=== PATIENT | male | born 1980 | race Two or more races ===

== ENCOUNTER 2019-02-11 09:02 | Emergency (ER) | payer MEDICAID ==
[~2019-02-11] VITALS: Ht 175.3 cm; Wt 74.8 kg
--- NOTE | 2019-02-11 09:03 | NUR ---
[id number], AND JAMSHID, HOMELESS ACTING BIZZARE, DENIES TAKING DRUGS. AGITATED. PATIENT CONNECTED TO MONITOR. VITAL SIGNS ARE STABLE. BREATHING UNLABORED AND EVEN. WILL CONTINUE TO MONITOR FOR PATIENT'S SAFETY.
--- NOTE | 2019-02-11 09:08 | NUR ---
URINE COLLECTED AND SENT TO LAB.
[2019-02-11] MEDS ORDERED: diphenhydrAMINE HCL 50 MG/ML VIAL ONE (09:23)
[2019-02-11] MEDS ORDERED: LORAZEPAM INJ 2 MG/ML VIAL ONE (09:24)
[2019-02-11] MEDS ORDERED: HALOPERIDOL LACTATE INJ 5 MG/ML VIAL ONE (09:24)
[2019-02-11] MEDS ORDERED: diphenhydrAMINE HCL 50 MG/ML VIAL IM ONE (09:30)
[2019-02-11] MEDS ORDERED: HALOPERIDOL LACTATE INJ 5 MG/ML VIAL IM ONE (09:30)
[2019-02-11] MEDS ORDERED: LORAZEPAM INJ 2 MG/ML VIAL IM ONE (09:30)
[2019-02-11 09:42] LABS: BILIRUBIN,URINE Negative (NEGATIVE); BLOOD, URINE Trace-intact Ery/uL (NEGATIVE); COLOR,URINE Yellow (YELLOW); KETONES,URINE Negative (NEGATIVE); LEUKOCYTE ESTERASE ,URINE Negative (NEGATIVE); NITRITE, URINE Negative (NEGATIVE); PROTEIN,URINE Negative (NEGATIVE); UGLUCOSE Negative (NEGATIVE); UROBILINOGEN,URINE 0.2 EU/dL (0.2)
[2019-02-11 09:47] LABS: APPEARANCE,URINE SLIGHTLY CLOUDY (CLEAR)
[2019-02-11 09:52] LABS: BASOPHILS # (AUTO) 0.1 /CMM (0.0-0.2); BASOPHILS % (AUTO) 0.8 % (0.0-2.0); EOSINOPHILS % (AUTO) 0.2 % (0.0-6.0); HEMATOCRIT 33 % (39-51); HEMOGLOBIN 10.3 g/dL (13.5-17.5); LYMPHOCYTES # (AUTO) 2.4 /CMM (0.8-4.8); LYMPHOCYTES % (AUTO) 14.1 % (20.0-44.0); MEAN CORPUSCULAR HGB CONC 32 g/dl (31.0-36.0); MEAN CORPUSCULAR VOLUME 73 fL (80-96); MONOCYTES # (AUTO) 1.9 /CMM (0.1-1.30); NEUTROPHILS # (AUTO) 12.5 /CMM (1.8-8.9); NEUTROPHILS % (AUTO) 73.9 % (43.0-81.0); PLATELET COUNT (AUTO) 496 /CMM (150-450); RED BLOOD CELL COUNT(AUTO) 4.45 MIL/uL (4.5-6.0); WHITE BLOOD COUNT (AUTO) 16.9 K/uL (4.3-11.0)
[2019-02-11 10:01] LABS: BACTERIA,URINE None seen /HPF (None Seen); SQUAMOUS EPITHELIAL CELL,UR Few /HPF (None Seen)
[2019-02-11 10:02] LABS: URINE AMORPHOUS PHOSPHATES Few /HPF (None Seen)
[2019-02-11 10:09] LABS: CALCIUM, SERUM 9.3 mg/dL (8.5-10.1); CARBON DIOXIDE 29 mmol/L (21-32); CHLORIDE 103 mmol/L (98-107); CREATININE 0.8 mg/dL (0.6-1.3); GLUCOSE 91 mg/dL (74-106); POTASSIUM 4.3 mmol/L (3.5-5.1); SODIUM SERUM 138 mmol/L (136-145); UREA NITROGEN, BLOOD 16 mg/dL (7-18)
[2019-02-11 10:17] LABS: ACETAMINOPHEN 0 ug/ml (10-30); ALANINE AMINOTRANSFERASE 25 U/L (12-78); ALBUMIN 2.8 g/dL (3.4-5.0); ALCOHOL, BLOOD < 3 mg/dL (0-0); ALKALINE PHOSPHATASE 135 U/L (46-116); ASPARTATE AMINOTRANSFERASE 28 U/L (15-37); BILIRUBIN,DIRECT 0.1 mg/dL (0.0-0.2); BILIRUBIN,TOTAL 0.3 mg/dL (0.2-1.0); SALICYLATE 1.5 mg/dL (2.8-20.0); TOTAL PROTEIN, SERUM 8.9 g/dL (6.4-8.2)
[2019-02-11 12:11] LABS: LYMPHOCYTES % (MANUAL) 11 % (16-48); MONOCYTES % (MANUAL) 5 % (0-11.0); NEUTROPHILS % (MANUAL) 84 (42-76)
--- NOTE | 2019-02-12 05:52 | NUR ---
PT UNSTEADY. UNABLE TO DISCHARGE AT THIS TIME. AWARE
--- NOTE | 2019-02-12 07:28 | NUR ---
PT ASSESSED ON BED ASLEEP EASILY AROUSABLE, V/S STABLE, KEPT RESTED AND COMFORTABLE, WILL CONTINUE TO MONITOR.
--- NOTE | 2019-02-12 08:35 | NUR ---
FOOD TRAY PROVIDED
--- NOTE | 2019-02-12 08:40 | NUR ---
Social service consult requested by GENESIS More for homelessness and chronic drug use. Pt. is a 39 year old male who was brought in by police and paramedics on 02/11/19. . Patient was found in the street acting bizarre with suspected drug use.JIMMY met with the pt. bedside. Pt. is alert and oriented x 3. SW and ED is very familiar with the pt. from several ED visits per month. Pt. is a chronic methamphetamine user and last used yesterday. Pt. is homeless. Pt. appears dirty and disheveled. Pt. has a foul smell. Pt. is able to answer questions asked of him. JIMMY offered halfway placement to the pt., however pt. declined. SW offered homeless resources and pt. declined. Pt. is still has unsteady gait and is not able to be discharged as of yet. JIMMY informed GENESIS More and [place] regarding pt' s gait.
--- NOTE | 2019-02-12 12:52 | NUR ---
PT ASLEEP ON BED, EASILY AROUSABLE, V/S STABLE, KEPT RESTED AND COMFORTABLE, WILL CONTINUE TO MONITOR.
--- NOTE | 2019-02-12 14:37 | NUR ---
AT BEDSIDE FOR EVAL.
--- NOTE | 2019-02-12 14:50 | NUR ---
PT WHEELED TO CT SCAN VIA [facility].
[2019-02-12 15:38] VITALS: BP 128/76
--- NOTE | 2019-02-12 15:38 | NUR ---
Patient discharged to home in stable condition. Written and verbal after care instructions given. Patient verbalizes understanding of instruction.
== END 2019-02-12 15:39 | disposition home or self-care (01) ==
LOC: ER 09:04
DX: R45.1 Restlessness and agitation (principal); R51 Headache; F12.10 Cannabis abuse, uncomplicated; F11.10 Opioid abuse, uncomplicated; F15.10 Other stimulant abuse, uncomplicated; Z59.0 Homelessness
CPT/HCPCS: 36415; 70450; 80048; 80076; 80305; 80307; 80329; 81001; 85025; 96372 ×3; 99284; A4216; G0480; J1200; J1630; J2060; 81000-TC

== ENCOUNTER 2019-03-15 09:11 | Emergency (ER) | payer MEDICAID ==
[~2019-03-15] VITALS: Ht 175.3 cm; Wt 62.6 kg
--- NOTE | 2019-03-15 09:22 | NUR ---
PT OLINDA FROM THE STREET C/O BACK PAIN AND NECK PAIN, UNABLE TO WALK STATED BY THE PT, PT IS [id number], NOT IN RESPIRATORY DISTRESS, HOOKED TO MONITOR, KEPT RESTED AND COMFORTABLE, WILL CONTINUE TO MONITOR.
--- NOTE | 2019-03-15 09:29 | NUR ---
AT BEDSIDE FOR EVAL.
[2019-03-15] MEDS ORDERED: KETOROLAC TROMETHAMINE 15 MG/ML VIAL ONE (09:40)
--- NOTE | 2019-03-15 09:45 | NUR ---
IV LINE ESTABLISHED, BLOOD DRAWN AND SENT TO LAB
[2019-03-15 09:52] LABS: BASOPHILS # (AUTO) 0.1 /CMM (0.0-0.2); BASOPHILS % (AUTO) 0.5 % (0.0-2.0); EOSINOPHILS % (AUTO) 0.1 % (0.0-6.0); HEMATOCRIT 35 % (39-51); HEMOGLOBIN 10.8 g/dL (13.5-17.5); LYMPHOCYTES % (AUTO) 5.1 % (20.0-44.0); MEAN CORPUSCULAR HGB CONC 31 g/dl (31.0-36.0); MEAN CORPUSCULAR VOLUME 70 fL (80-96); MONOCYTES # (AUTO) 1.5 /CMM (0.1-1.30); MONOCYTES % (AUTO) 7.6 % (2.0-12.0); NEUTROPHILS # (AUTO) 17.6 /CMM (1.8-8.9); NEUTROPHILS % (AUTO) 86.7 % (43.0-81.0); PLATELET COUNT (AUTO) 534 /CMM (150-450); RED BLOOD CELL COUNT(AUTO) 4.94 MIL/uL (4.5-6.0); WHITE BLOOD COUNT (AUTO) 20.3 K/uL (4.3-11.0)
--- NOTE | 2019-03-15 09:55 | NUR ---
TALENT SPECIALIST AT BEDSIDE FOR XRAY.
[2019-03-15] MEDS ORDERED: KETOROLAC TROMETHAMINE INJ 30 MG/ML VIAL IV ONE (10:00)
[2019-03-15] MEDS ORDERED: IV NS 0.9% 1,000 ML BAG IV ONE ×2 (10:00→11:00)
[2019-03-15 10:02] LABS: CREATININE 0.6 mg/dL (0.6-1.3); POTASSIUM 4.5 mmol/L (3.5-5.1)
[2019-03-15 10:07] LABS: ALBUMIN 2.4 g/dL (3.4-5.0); BILIRUBIN,DIRECT 0.1 mg/dL (0.0-0.2); BILIRUBIN,TOTAL 0.3 mg/dL (0.2-1.0); TOTAL PROTEIN, SERUM 9.6 g/dL (6.4-8.2)
[2019-03-15] MEDS ORDERED: CEFTRIAXONE 1GM BAG (ER ONLY) 50 ML IV ONE (10:23)
[2019-03-15] MEDS ORDERED: CEFTRIAXONE 1 G in IV D5W 50 ML IV ONE (10:30)
[2019-03-15 11:00] LABS: EOSINOPHILS % (MANUAL) 1 % (0-4); LYMPHOCYTES % (MANUAL) 8 % (16-48); MONOCYTES % (MANUAL) 8 % (0-11.0); NEUTROPHILS % (MANUAL) 83 (42-76)
[2019-03-15] MEDS ORDERED: PIPERACILLIN /TAZOBACTAM 3.375 G in IV D5W 50 ML IV ONE (11:00)
[2019-03-15] MEDS ORDERED: VANCOMYCIN 1 GM in IV D5W 250 ML IV ONE (11:00)
[2019-03-15] MEDS ORDERED: CT SWABBABLE VALVE TRANS SET 1 EA INFUS.SET MC ONE (11:16)
[2019-03-15] MEDS ORDERED: IOHEXOL-300 100 ML VIAL IV ONE (11:16)
--- NOTE | 2019-03-15 11:20 | NUR ---
PT IS WHEELED TO CT SCAN VIA [facility].
--- NOTE | 2019-03-15 11:33 | NUR ---
DL GO MD WILL REVIEW CLINICALS TO SEE OF PATIENT IS STABLE FOR TRANSPORT
--- NOTE | 2019-03-15 11:51 | NUR ---
URINE SPECIMEN COLLECTED AND SENT TO LAB.
[2019-03-15 11:55] LABS: APPEARANCE,URINE Slightly Cloudy (CLEAR); BILIRUBIN,URINE Negative (NEGATIVE); BLOOD, URINE Large Ery/uL (NEGATIVE); COLOR,URINE Light yellow (YELLOW); KETONES,URINE Negative (NEGATIVE); LEUKOCYTE ESTERASE ,URINE Large (NEGATIVE); NITRITE, URINE Positive (NEGATIVE); PH,URINE 7.5 (5.0-8.0); PROTEIN,URINE 30 mg/dl (NEGATIVE); UGLUCOSE Negative (NEGATIVE); UROBILINOGEN,URINE 0.2 EU/dL (0.2)
[2019-03-15 12:08] LABS: BACTERIA,URINE Many /HPF (None Seen); SQUAMOUS EPITHELIAL CELL,UR Many /HPF (None Seen); WBC,URINE 21-50 /HPF (0-3)
[2019-03-15 12:09] LABS: RED BLOOD CELL CASTS,URINE Few /LPF (None Seen)
--- NOTE | 2019-03-15 12:17 | NUR ---
DR. CRONIN FROM [facility] SPOKE TO DR BANERJEE
--- NOTE | 2019-03-15 14:56 | NUR ---
RN SUP WAS CALLED, WAITING FOR BED ASSIGNMENT
[2019-03-15 15:27] VITALS: BP 152/88
--- NOTE | 2019-03-15 15:46 | NUR ---
SALES OPERATIONS ANALYST RUTHANN SAYS PT WILL BE TRANSPORTED TO [facility] [id number]. [facility] ETA IS 1600. NUMBER FOR REPORT IS [phone]
--- NOTE | 2019-03-15 16:09 | NUR ---
REPORT GIVEN TO [place] ARTIS FROM [facility] FOR [facility].
--- NOTE | 2019-03-15 16:24 | NUR ---
REPORT GIVEN TO EMT FOR PT TRANSFER TO [facility].
== END 2019-03-15 16:25 | disposition short-term general hospital (02) ==
LOC: ER 09:12
DX: E86.0 Dehydration (principal); N39.0 Urinary tract infection, site not specified; G83.10 Monoplegia of lower limb affecting unspecified side; Z59.0 Homelessness
CPT/HCPCS: 36415; 51702; 71045; 71260; 72020; 74177; 80048; 80076; 81001; 83605; 83690; 85025; 85730; 86140; 87040; 87081; 87086; 96361; 96365; 96367; 96375; 99285; J0696; J1885; J2543; J3370; J7030 ×2; J7060 ×2; Q9967; 81000-TC

== ENCOUNTER 2019-07-20 08:22 | Emergency (ER) | payer MEDICAID ==
[~2019-07-20] VITALS: Ht 170.2 cm; Wt 68.0 kg
[2019-07-20] MEDS ORDERED: ONDANSETRON HCL/PF 4 MG/2 ML VIAL IVP ONE (09:00)
[2019-07-20] MEDS ORDERED: PIPERACILLIN /TAZOBACTAM 3.375 G in IV D5W 50 ML IV ONE (09:00)
[2019-07-20] MEDS ORDERED: MORPHINE SULFATE INJ 2 MG/ML DISP.SYRIN IV ONE (09:00)
[2019-07-20] MEDS ORDERED: IV NS 0.9% 1,000 ML BAG IV ONE (09:00)
[2019-07-20 09:40] LABS: BASOPHILS # (AUTO) 0.1 /CMM (0.0-0.2); BASOPHILS % (AUTO) 0.6 % (0.0-2.0); EOSINOPHILS % (AUTO) 0.9 % (0.0-6.0); HEMATOCRIT 40 % (39-51); LYMPHOCYTES # (AUTO) 1.3 /CMM (0.8-4.8); MEAN CORPUSCULAR HGB CONC 32 g/dl (31.0-36.0); MEAN CORPUSCULAR VOLUME 84 fL (80-96); MONOCYTES # (AUTO) 1.1 /CMM (0.1-1.30); MONOCYTES % (AUTO) 10.9 % (2.0-12.0); NEUTROPHILS # (AUTO) 7.7 /CMM (1.8-8.9); NEUTROPHILS % (AUTO) 74.6 % (43.0-81.0); PLATELET COUNT (AUTO) 360 /CMM (150-450); RED BLOOD CELL COUNT(AUTO) 4.77 MIL/uL (4.5-6.0); WHITE BLOOD COUNT (AUTO) 10.3 K/uL (4.3-11.0)
[2019-07-20] MEDS ORDERED: HYDROCODONE/APAP 5/325MG 1 EACH TABLET ONE (09:46)
[2019-07-20] MEDS ORDERED: SULFAMETH/TRIMETH 800/160 MG 1 UDTAB TABLET ONE (09:46)
[2019-07-20] MEDS ORDERED: AMOX/CLAVULANATE 875 MG TABLET ONE (09:46)
[2019-07-20 09:51] LABS: CALCIUM, SERUM 9.2 mg/dL (8.5-10.1); CREATININE 0.6 mg/dL (0.6-1.3); POTASSIUM 4.3 mmol/L (3.5-5.1)
[2019-07-20] MEDS ORDERED: AMOX/CLAVULANATE 875 MG TABLET PO ONE (10:00)
[2019-07-20] MEDS ORDERED: HYDROCODONE/APAP 10/325MG 1 EA TABLET PO ONE (10:00)
[2019-07-20] MEDS ORDERED: SULFAMETH/TRIMETH 800/160 MG 1 UDTAB TABLET PO ONE (10:00)
--- NOTE | 2019-07-20 11:51 | NUR ---
PT REQUESTING RESOURCES AND TAP CARD. [facility] SUP CALLED.
--- NOTE | 2019-07-20 12:30 | NUR ---
Patient discharged to home in stable condition. Written and verbal after care instructions given. Patient verbalizes understanding of instruction.
[2019-07-20 13:08] VITALS: BP 127/76
== END 2019-07-20 13:08 | disposition home or self-care (01) ==
LOC: ER 08:30
DX: L03.90 Cellulitis, unspecified (principal); F17.200 Nicotine dependence, unspecified, uncomplicated; Z59.0 Homelessness
CPT/HCPCS: 36415; 80048; 83605; 85025; 85730; 87040 ×2; 99284; J2543; J7060

== ENCOUNTER 2019-10-16 09:56 | Emergency (ER) | payer MEDICAID ==
[~2019-10-16] VITALS: Ht 170.2 cm; Wt 67.1 kg
--- NOTE | 2019-10-16 10:10 | NUR ---
DR CLAIRE AT BEDSIDE FOR EVAL.
[2019-10-16] MEDS ORDERED: diphenhydrAMINE HCL 50 MG/ML VIAL ONE (10:21)
[2019-10-16] MEDS ORDERED: LORAZEPAM INJ 2 MG/ML VIAL ONE (10:21)
[2019-10-16] MEDS ORDERED: HALOPERIDOL LACTATE INJ 5 MG/ML VIAL ONE (10:21)
--- NOTE | 2019-10-16 10:28 | NUR ---
CONTINUOUS DRIER HELPER AT BEDSIDE FOR BLOOD DRAW.
--- NOTE | 2019-10-16 10:28 | NUR ---
Benjy gonzalez in [facility] - 10/16/19 at 1032 by SERGIO AUTHORIZER AT BEDSIDE FOR ALYSSAAL.
[2019-10-16] MEDS ORDERED: diphenhydrAMINE HCL 50 MG/ML VIAL IM ONE (10:30)
[2019-10-16] MEDS ORDERED: HALOPERIDOL LACTATE INJ 5 MG/ML VIAL IM ONE (10:30)
[2019-10-16] MEDS ORDERED: LORAZEPAM INJ 2 MG/ML VIAL IM ONE (10:30)
[2019-10-16 10:33] LABS: BASOPHILS # (AUTO) 0.1 /CMM (0.0-0.2); BASOPHILS % (AUTO) 0.8 % (0.0-2.0); EOSINOPHILS % (AUTO) 1.1 % (0.0-6.0); HEMATOCRIT 36 % (39-51); HEMOGLOBIN 11.2 g/dL (13.5-17.5); LYMPHOCYTES # (AUTO) 2.1 /CMM (0.8-4.8); LYMPHOCYTES % (AUTO) 15.8 % (20.0-44.0); MEAN CORPUSCULAR HGB CONC 31 g/dl (31.0-36.0); MEAN CORPUSCULAR VOLUME 78 fL (80-96); MONOCYTES # (AUTO) 1.4 /CMM (0.1-1.30); MONOCYTES % (AUTO) 10.9 % (2.0-12.0); NEUTROPHILS # (AUTO) 9.3 /CMM (1.8-8.9); NEUTROPHILS % (AUTO) 71.4 % (43.0-81.0); PLATELET COUNT (AUTO) 569 /CMM (150-450); RED BLOOD CELL COUNT(AUTO) 4.57 MIL/uL (4.5-6.0); WHITE BLOOD COUNT (AUTO) 13.1 K/uL (4.3-11.0)
[2019-10-16 10:38] LABS: CALCIUM, SERUM 8.8 mg/dL (8.5-10.1); CARBON DIOXIDE 32 mmol/L (21-32); CHLORIDE 103 mmol/L (98-107); CREATININE 0.6 mg/dL (0.6-1.3); GLUCOSE 82 mg/dL (74-106); POTASSIUM 3.9 mmol/L (3.5-5.1); SODIUM SERUM 138 mmol/L (136-145); UREA NITROGEN, BLOOD 15 mg/dL (7-18)
[2019-10-16 10:44] LABS: ACETAMINOPHEN 0 ug/ml (10-30); ALANINE AMINOTRANSFERASE 37 U/L (12-78); ALBUMIN 2.5 g/dL (3.4-5.0); ALCOHOL, BLOOD < 3 mg/dL (0-0); ALKALINE PHOSPHATASE 115 U/L (46-116); ASPARTATE AMINOTRANSFERASE 29 U/L (15-37); BILIRUBIN,DIRECT 0.1 mg/dL (0.0-0.2); BILIRUBIN,TOTAL 0.2 mg/dL (0.2-1.0); SALICYLATE 1.1 mg/dL (2.8-20.0)
--- NOTE | 2019-10-16 13:59 | NUR ---
Patient asleep but arousable nopn distress continue to monitor
--- NOTE | 2019-10-16 18:30 | NUR ---
Patient asleep but arousable patient is homeless declined care home
--- NOTE | 2019-10-16 19:12 | NUR ---
Transfer care to Rogelio MAURO
[2019-10-16 21:30] VITALS: BP 126/60
== END 2019-10-16 21:31 | disposition home or self-care (01) ==
LOC: ER 10:00
DX: S01.01XA Laceration without foreign body of scalp, initial encounter (principal); G93.40 Encephalopathy, unspecified; Z60.2 Problems related to living alone; X58.XXXA Exposure to other specified factors, initial encounter; Y93.89 Activity, other specified; Y92.89 Other specified places as the place of occurrence of the external cause; Y99.8 Other external cause status
CPT/HCPCS: 36415; 80048; 80076; 80305; 80307; 80329; 85025; 96372 ×3; 99284; G0480; J1200; J1630; J2060